=== PATIENT | male | born 1970 | race Caucasian/White ===

== ENCOUNTER 2023-09-04 14:35 | Outpatient (CLI) | payer BC | END 2023-09-04 14:36 | disposition home or self-care (01) | LOC: SCSMRI 14:35 | PROVIDERS: ATTEND Otolaryngology Plastic Surgery within the Head & Neck | DX: H93.11 Tinnitus, right ear (principal); H90.5 Unspecified sensorineural hearing loss | CPT/HCPCS: 70553 ==